=== PATIENT | female | born 1985 | race Caucasian/White ===

== ENCOUNTER 2020-11-10 10:38 | Emergency (ER) | payer OTHER, SELFPAY ==
[2020-11-10 11:14] VITALS: BP 143/99; PULSE 68; RESP 20; TEMP 36.9; O2SAT 100
[2020-11-10] MEDS: KETOROLAC (*BKC) 60 MG/2 ML VIAL IM (13:01)
[2020-11-10] MEDS: TETANUS,DIPHTHERIA,AC PERTUSSIS ADULT (0.5 ML) BOOSTRIX IM (13:01)
--- NOTE | 2020-11-10 13:36 | ED.GENADULT ---
HPI - General Adult General Chief complaint: Animal Bite Stated complaint: dog bite Time Seen by Provider: 11/10/20 11:19 Source: patient and RN notes reviewed Mode of arrival: ambulatory Limitations: no limitations History of Present Illness HPI narrative: Patient is a 35-year-old female who presents with dog bites to the left lower extremity patient was preparing to perform an operation on a dog when the dog when released bit her on the left leg where she has an abrasion and three lacerations patient notes that her tetanus is not up-to-date. Patient notes mild to moderate aching pain worse with activity and movement. Patient on arrival is not distressed and has not had anything for her symptoms Related Data Home Medications Medication Instructions Recorded Confirmed famotidine [Pepcid] 20 mg PO BID 11/10/20 montelukast [Singulair] 10 mg PO DAILY 11/10/20 Allergies Allergy/AdvReac Type Severity Reaction Status Date / Time No Known Allergies Allergy Verified 11/10/20 11:26 Review of Systems Review of Systems: All systems reviewed & are unremarkable except as noted in HPI and below PMFSH Social History Social History (Updated 11/10/20 @ 13:37 by David Ryan PA-C) Smoking status: Never smoker Exam Narrative: Exam Narrative: GENERAL: Well-appearing, well-nourished, and in no acute distress. HEAD: Normocephalic, atraumatic. EYES: PERRLA and EOMI. ENT: Nares clear, no rhinorrhea or epistaxis. Mucous membranes moist. EXTREMITIES: Normal range of motion. No edema. SKIN: Warm, dry, no rash. 3 cm superficial abrasion left lateral calf. Patient with 3-1/2 cm deep gaping wound to the left lateral calf. 2-1/2 cm gaping wound below this lesion extending to the subcutaneous tissues. 1-1/2 cm gaping laceration to the posterior calf NEURO: No focal deficits. Alert and oriented x3. Neurovascularly intact. Capillary refill less than 2 seconds PSYCH: Normal mood and affect. 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 and preferred for the wounds to be more approximated given the gaping nature patient resting comfortably in the room pre and post procedure neurovascularly intact pre and post procedure Vital Signs Vital signs: Vital Signs Temperature 98.4 F 11/10/20 11:14 Pulse Rate 68 11/10/20 11:14 Respiratory Rate 20 11/10/20 11:14 Blood Pressure 143/99 H 11/10/20 11:14 Pulse Oximetry 100 11/10/20 11:14 Temperature 98.4 F 11/10/20 11:14 Pulse Rate 68 11/10/20 11:14 Respiratory Rate 20 11/10/20 11:14 Blood Pressure 143/99 H 11/10/20 11:14 Pulse Oximetry 100 11/10/20 11:14 Procedures Laceration Laceration 1: Date: 11/10/20 Time: 13:39 Site: lower extremity Side (If applicable): left Size (cm): 3.5 Description: irregular Depth: simple, single layer Local Anesthetic: lidocaine 1% Pre-repair: wound explored, irrigated and irrigated extensively ====== Skin Level ====== Skin layer closed with: nylon Size (cm): 5-0 Number of sutures: 2 Technique: simple, interrupted ====== Subcutaneous Layer ====== ====== Muscle Layer ====== ====== Tendon Layer ====== Laceration 2: Date: 11/10/20 Time: 13:40 Site: lower extremity Side (If applicable): left Size (cm): 2.5 Description: irregular Depth: simple, single layer Local Anesthetic: lidocaine 1% Pre-repair: wound explored, irrigated and irrigated extensively ====== Skin Level ====== Skin layer closed with: nylon Size (cm): 5-0 Number of sutures: 2 Technique: simple, interrupted ====== Subcutaneous Layer ====== ====== Muscle Layer ====== ====== Tendon Layer ====== Laceration 3: Date: 11/10/20 Time: 13:41 Site: lower e
[2020-11-10 13:59] VITALS: BP 118/75; PULSE 72; RESP 15; O2SAT 100
== END 2020-11-10 14:01 | disposition home or self-care (01) ==
PROVIDERS: Emergency Provider Emergency Medicine; PCP Nurse Practitioner Family
DX: S81.852A Open bite, left lower leg, initial encounter (principal); W54.0XXA Bitten by dog, initial encounter; Z23 Encounter for immunization
CPT/HCPCS: 12002; 90471; 90715; 96372; 99283; J1885